=== PATIENT | male | born 1955 | race Caucasian/White ===

== ENCOUNTER → 2016-08-30 | Outpatient (CLI) | payer BC ==
[~2016-08-30] MED LIST: ATORVASTATIN CA20 MG PO; FLUTICASONE PRO16 GM BOTH NARES; FOSINOPRIL SODI20 MG PO; NEXIUM40 MG PO; VERAPAMIL PO
== END | disposition home or self-care (01) ==
LOC: CDC 10:09
DX: Z01.810 Encounter for preprocedural cardiovascular examination (principal); S83.241D Other tear of medial meniscus, current injury, right knee, subsequent encounter
CPT/HCPCS: 93000